=== PATIENT | female | born 1965 | race Caucasian/White ===

== ENCOUNTER → 2017-04-18 | Outpatient (CLI) | payer OTHER ==
[~2017-04-18] MED LIST: CLARITIN10 MG PO; COENZYME Q10100 MG PO; GINKGO BILOBA120 MG PO; LEVOTHROID (S125 MCG PO; LOPRESSOR25 MG PO; MAGNESIUM400 M1 PO; THERA-VITE W/ B1 TAB PO; VITAMIN D32000 UNI1 PO; VITAMIN E PO; ZYRTEC10 MG PO
== END | disposition disaster alternative care site (69) ==
LOC: GBCOE 09:19
DX: Z12.31 Encounter for screening mammogram for malignant neoplasm of breast (principal)
CPT/HCPCS: G0202